=== PATIENT | female | born 1950 | race Caucasian/White ===

== ENCOUNTER → 2016-03-11 | Outpatient (REF) | payer MEDICARE, OTHER | LOC: M SFHCCLAY 09:16 | PROVIDERS: ATTEND Nurse Practitioner Family | DX: E78.5 Hyperlipidemia, unspecified (principal); E55.9 Vitamin D deficiency, unspecified ==

== ENCOUNTER → 2016-07-01 | Outpatient (CLI) | payer MEDICARE, OTHER ==
--- NOTE | 2016-07-01 11:52 | RADONC ---
RADIATION ONCOLOGY FOLLOWUP NOTE DATE: 07/01/2016 CHART NUMBER: [id number] DIAGNOSIS: Right breast cancer. STAGE: IA, [id number]. ECOG PERFORMANCE STATUS: 0. FOLLOWUP NOTE: Ms. Reina is a very pleasant 65-year-old white female with the diagnosis of a stage IA, [id number], moderately differentiated infiltrating ductal carcinoma of the right breast who is presenting to us today for routine followup visit 6 months post completion of external beam radiation therapy. The patient presents today reporting that she is doing quite well with no complaints at this time related to her radiation therapy or disease. She has no breast or bone pain. The patient's review of systems is noncontributory. She denies nausea, vomiting, fevers, chills, night sweats, diplopia, headaches, anxiety or depression, anorexia, weight loss, visual disturbances, chest pain, urinary or bowel difficulties, bone pain, or neurological problems. PHYSICAL EXAMINATION: The patient is a well-developed, well-nourished, female in no acute distress. HEENT exam is normocephalic, atraumatic. Extraocular movements are intact. There is no palpable cervical, supraclavicular, infraclavicular, axillary, or inguinal lymphadenopathy present. Lungs are clear to auscultation and percussion. Heart has a regular rate and rhythm. Abdomen is benign with no hepatosplenomegaly, masses, or tenderness. Breast examination reveals no masses or discharge bilaterally. Skeletal examination reveals no tenderness to pressure or percussion of the bony skeleton. Extremities reveal no clubbing, cyanosis, or edema. Neurologic exam is grossly intact, as is the remainder of the physical examination. ASSESSMENT: The patient is clinically AZEEM at this time and will be seen by us again in 1 year for further followup. She will also continue to be followed by her other physicians as well. cc: *Dr. Madhu Wisdom *Shen Almodovar MD *HEATH James
== END ==
LOC: M ONCR 10:07
PROVIDERS: ATTEND Radiology Radiation Oncology
DX: C50.211 Malignant neoplasm of upper-inner quadrant of right female breast (principal)

== ENCOUNTER → 2016-07-03 | Outpatient (REF) | payer MEDICARE, OTHER | LOC: M SFHCCLAY 07:41 | PROVIDERS: ATTEND Nurse Practitioner Family | DX: E78.5 Hyperlipidemia, unspecified (principal); E55.9 Vitamin D deficiency, unspecified ==

== ENCOUNTER → 2016-11-10 | Outpatient (REF) | payer MEDICARE, OTHER ==
[2016-11-10 12:23] LABS: MEAN CORPUSCULAR HEMOGLOBIN 30.5 pg (27.0-33.0); MEAN CORPUSCULAR HGB CONC 33.3 g/dl (32.0-36.5); MEAN CORPUSCULAR VOLUME 91.8 fl (80.0-96.0); RED CELL DISTRIBUTION WIDTH 12.6 % (11.5-14.5); WHITE BLOOD COUNT 5.4 K/mm3 (4.0-10.0)
[2016-11-10 12:57] LABS: ALBUMIN 3.8 GM/DL (3.2-5.2); ALBUMIN/GLOBULIN RATIO 1.19 (1.00-1.93); ALKALINE PHOSPHATASE 58 U/L (45-117); ALT/SGPT 39 U/L (12-78); ANION GAP 7 MEQ/L (8-16); AST/SGOT 22 U/L (15-37); BILIRUBIN,TOTAL 0.3 MG/DL (0.2-1.0); BLOOD UREA NITROGEN 8 MG/DL (7-18); CALCIUM LEVEL 8.9 MG/DL (8.8-10.2); CARBON DIOXIDE LEVEL 27 MEQ/L (21-32); CHLORIDE LEVEL 108 MEQ/L (98-107); CHOLESTEROL LEVEL 196 MG/DL (<200); CREATININE FOR GFR 0.63 MG/DL (0.55-1.02); GLOMERULAR FILTRATION RATE > 60.0 (>45); GLUCOSE, FASTING 88 MG/DL (80-110); POTASSIUM SERUM 4.5 MEQ/L (3.5-5.1); SODIUM LEVEL 142 MEQ/L (136-145); TRIGLYCERIDES LEVEL 158 MG/DL (<150)
== END ==
LOC: M SFHCCLAY 11-09 07:57
PROVIDERS: ATTEND Nurse Practitioner Family
DX: I10 Essential (primary) hypertension (principal); E78.5 Hyperlipidemia, unspecified; E55.9 Vitamin D deficiency, unspecified

== ENCOUNTER → 2017-05-11 | Outpatient (REF) | payer MEDICARE, OTHER ==
[2017-05-11 17:17] LABS: TOTAL 25(OH) VITAMIN D 42.5 NG/ML (30.0-100.0)
== END ==
LOC: M SFHCCLAY 09:58
DX: E55.9 Vitamin D deficiency, unspecified (principal)
CPT/HCPCS: 82306

== ENCOUNTER → 2017-07-07 | Outpatient (CLI) | payer MEDICARE, OTHER | LOC: M ONCR 10:58 | DX: C50.211 Malignant neoplasm of upper-inner quadrant of right female breast (principal) | CPT/HCPCS: G0463 ==

== ENCOUNTER → 2017-11-12 | Outpatient (REF) | payer MEDICARE, OTHER ==
[2017-11-12 11:51] LABS: HEMATOCRIT 39.2 % (36.0-47.0); HEMOGLOBIN 12.9 g/dl (12.0-15.5); MEAN CORPUSCULAR HEMOGLOBIN 29.6 pg (27.0-33.0); MEAN CORPUSCULAR HGB CONC 32.9 g/dl (32.0-36.5); MEAN CORPUSCULAR VOLUME 89.9 fl (80.0-96.0); PLATELET COUNT, AUTOMATED 269 10^3/uL (150-450); RED BLOOD COUNT 4.36 10^6/uL (4.00-5.40); RED CELL DISTRIBUTION WIDTH 12.6 % (11.5-14.5); WHITE BLOOD COUNT 6.8 10^3/uL (4.0-10.0)
[2017-11-12 12:32] LABS: ALBUMIN 3.6 GM/DL (3.2-5.2); ALBUMIN/GLOBULIN RATIO 0.97 (1.00-1.93); ALKALINE PHOSPHATASE 60 U/L (45-117); ALT/SGPT 24 U/L (12-78); ANION GAP 6 MEQ/L (8-16); AST/SGOT 15 U/L (7-37); BILIRUBIN,TOTAL 0.4 MG/DL (0.2-1.0); BLOOD UREA NITROGEN 10 MG/DL (7-18); CALCIUM LEVEL 8.7 MG/DL (8.8-10.2); CARBON DIOXIDE LEVEL 28 MEQ/L (21-32); CHLORIDE LEVEL 106 MEQ/L (98-107); CHOLESTEROL LEVEL 188 MG/DL (<200); CHOLESTEROL RISK RATIO 3.916 (<5); GLOMERULAR FILTRATION RATE > 60.0 (>45); GLUCOSE, FASTING 88 MG/DL (70-100); HDL CHOLESTEROL 48 MG/DL (>40); LDL CHOLESTEROL 93 MG/DL (<100); NON-HDL-C 140 MG/DL; POTASSIUM SERUM 4.4 MEQ/L (3.5-5.1); SODIUM LEVEL 140 MEQ/L (136-145); TOTAL 25(OH) VITAMIN D 56.1 NG/ML (30.0-100.0); TOTAL PROTEIN 7.3 GM/DL (6.4-8.2); TRIGLYCERIDES LEVEL 237 MG/DL (<150)
== END ==
LOC: M SFHCCLAY 08:46
DX: I10 Essential (primary) hypertension (principal); E78.5 Hyperlipidemia, unspecified; E55.9 Vitamin D deficiency, unspecified
CPT/HCPCS: 80053

== ENCOUNTER → 2017-12-08 | Outpatient (CLI) | payer MEDICARE, OTHER | LOC: M ONCR 11:01 | DX: C50.911 Malignant neoplasm of unspecified site of right female breast (principal) | CPT/HCPCS: G0463 ==

== ENCOUNTER → 2018-02-16 | Outpatient (REF) | payer MEDICARE, OTHER ==
[2018-04-09 15:39] LABS: HPV HYBRID CAPTURE II Negative (Negative)
== END ==
LOC: M SFHCCLAY 16:50
PROVIDERS: ATTEND Nurse Practitioner Family
DX: Z12.4 Encounter for screening for malignant neoplasm of cervix (principal); R87.610 Atypical squamous cells of undetermined significance on cytologic smear of cervix (ASC-US); N95.2 Postmenopausal atrophic vaginitis
CPT/HCPCS: 87624; G0123; G0463

== ENCOUNTER → 2018-05-16 | Outpatient (REF) | payer MEDICARE, OTHER ==
[2018-05-16 12:05] LABS: CHOLESTEROL RISK RATIO 3.783 (<5)
== END ==
LOC: M SFHCCLAY 08:12
PROVIDERS: ATTEND Nurse Practitioner Family
DX: E78.5 Hyperlipidemia, unspecified (principal)

== ENCOUNTER → 2018-07-13 | Outpatient (CLI) | payer MEDICARE, OTHER ==
--- NOTE | 2018-07-14 07:43 | RADONC ---
RADIATION ONCOLOGY FOLLOWUP NOTE DATE OF SERVICE: 07/13/2018 CHART NUMBER: [id number]. DIAGNOSIS: Right breast cancer. STAGE: I A, [id number]. ECOG PERFORMANCE STATUS: 0. FOLLOWUP NOTE: Mrs. Reina is a pleasant 67-year-old female with a diagnosis of stage I A right-sided breast cancer. She completed her external beam radiotherapy on 01/22/2016. She denies any side effects related to her disease or to her treatments. REVIEW OF SYSTEMS: She specifically denies any nausea, vomiting, coughing, sputum production or hemoptysis. Her energy level is such that she is able to maintain most day-to-day activities without any significant alteration in her lifestyle. Skin irritation is currently denied. The remainder of the review of systems is essentially noncontributory as she denies nausea, vomiting, fevers, chills, night sweats, diplopia, headaches, anxiety, depression, anorexia, weight loss, visual disturbances, chest pain, breast pain, urinary or bowel problems, bone pain or neurologic issues. EXAMINATION FINDINGS: Skin within the irradiated volume shows some minor telangiectatic changes but no significant thickening of the skin. There is no palpable peripheral lymphadenopathy in the cervical, supraclavicular, axillary or inguinal lymph node chains. Lungs are clear to auscultation and percussion. Heart: Regular without murmurs. Abdomen: Without evidence of hepatomegaly, masses or deep abdominal tenderness. Extremities: Without cyanosis, clubbing or edema. Neurologic: Examination grossly physiologic and nonfocal. Breasts: Bilaterally symmetric with no masses palpable. The most recent mammography was obtained on September 27, 2017 and was essentially negative with no evidence of malignancy in either breast. IMPRESSION: Clinically AZEEM at this time. PLAN: We would like to see her again in 6 months and she was encouraged to continue her routine followup visits with her referring physicians as per their directions and instructions. cc: FRANC James MD
== END ==
LOC: M ONCR 10:45
PROVIDERS: ATTEND Radiology Radiation Oncology
DX: Z85.3 Personal history of malignant neoplasm of breast (principal); Z92.3 Personal history of irradiation

== ENCOUNTER → 2018-08-22 | Outpatient (REF) | payer MEDICARE, OTHER ==
[2018-08-22 12:45] LABS: CHOLESTEROL RISK RATIO 3.754 (<5)
== END ==
LOC: M SFHCCLAY 07:43
PROVIDERS: ATTEND Nurse Practitioner Family
DX: E78.5 Hyperlipidemia, unspecified (principal)

== ENCOUNTER → 2018-12-28 | Outpatient (CLI) | payer MEDICARE, OTHER ==
--- NOTE | 2018-12-28 13:02 | RADONC ---
RADIATION ONCOLOGY FOLLOWUP NOTE DATE OF SERVICE: 12/28/2018 CHART NUMBER: [id number]. DIAGNOSIS: Right breast cancer. STAGE: IA, [id number]. ECOG PERFORMANCE STATUS: 0. FOLLOWUP NOTE: Mrs. Reina is a very pleasant 68-year-old white female with the diagnosis of a stage IA, [id number] moderately differentiated infiltrating ductal carcinoma of the right breast who is presenting to us today for routine followup visit 2 years postcompletion of external beam radiation therapy. The patient presents today reporting that she is doing quite well with no complaints at this time related to her radiation therapy or disease. She has no breast or bone pain. REVIEW OF SYSTEMS: The patient's review of systems is noncontributory. She denies nausea, vomiting, fevers, chills, night sweats, diplopia, headaches, anxiety or depression, anorexia, weight loss, visual disturbances, chest pain, urinary or bowel difficulties, bone pain, or neurological problems. PHYSICAL EXAMINATION: The patient is a well-developed, well-nourished female in no acute distress. HEENT examination is normocephalic, atraumatic. Extraocular movements are intact. There is no palpable cervical, supraclavicular, infraclavicular, axillary, or inguinal lymphadenopathy present. Lungs are clear to auscultation and percussion. Heart has a regular rate and rhythm. Abdomen is benign with no hepatosplenomegaly, masses, or tenderness. Breast examination reveals no masses or discharge bilaterally. Skeletal examination reveals no tenderness to pressure or percussion of the bony skeleton. Extremities reveal no clubbing, cyanosis, or edema. Neurologic examination is grossly intact, as is the remainder of the physical examination. ASSESSMENT: The patient is clinically AZEEM at this time. She is being followed and managed closely by her other physicians and, therefore, is being discharged from my followup except on a p.r.n. basis. cc: FRANC James MD
== END ==
LOC: M ONCR 10:03
PROVIDERS: ATTEND Radiology Radiation Oncology
DX: Z08 Encounter for follow-up examination after completed treatment for malignant neoplasm (principal); Z92.3 Personal history of irradiation; C50.211 Malignant neoplasm of upper-inner quadrant of right female breast

== ENCOUNTER → 2019-02-13 | Outpatient (REF) | payer MEDICARE, OTHER ==
[2019-02-13 11:31] LABS: HEMATOCRIT 41.5 % (36.0-47.0); HEMOGLOBIN 13.2 g/dl (12.0-15.5); MEAN CORPUSCULAR HEMOGLOBIN 29.6 pg (27.0-33.0); MEAN CORPUSCULAR HGB CONC 31.8 g/dl (32.0-36.5); PLATELET COUNT, AUTOMATED 297 10^3/uL (150-450); RED BLOOD COUNT 4.46 10^6/uL (4.00-5.40); WHITE BLOOD COUNT 7.2 10^3/uL (4.0-10.0)
[2019-02-13 11:55] LABS: ALBUMIN 3.6 GM/DL (3.2-5.2); ALT/SGPT 33 U/L (12-78); BILIRUBIN,TOTAL 0.4 MG/DL (0.2-1.0); BLOOD UREA NITROGEN 12 MG/DL (7-18); CALCIUM LEVEL 9.2 MG/DL (8.8-10.2); CARBON DIOXIDE LEVEL 28 MEQ/L (21-32); CHLORIDE LEVEL 108 MEQ/L (98-107); CHOLESTEROL LEVEL 218 MG/DL (<200); CHOLESTEROL RISK RATIO 3.573 (<5); CREATININE FOR GFR 0.71 MG/DL (0.55-1.30); GLOMERULAR FILTRATION RATE > 60.0 (>45); GLUCOSE, FASTING 97 MG/DL (70-100); HDL CHOLESTEROL 61 MG/DL (>40); LDL CHOLESTEROL 138 MG/DL (<100); NON-HDL-C 157 MG/DL; POTASSIUM SERUM 4.4 MEQ/L (3.5-5.1); SODIUM LEVEL 143 MEQ/L (136-145); TOTAL PROTEIN 7.1 GM/DL (6.4-8.2); TRIGLYCERIDES LEVEL 93 MG/DL (<150)
[2019-02-13 12:01] LABS: TOTAL 25(OH) VITAMIN D 65.4 NG/ML (30.0-100.0)
== END ==
LOC: M SFHCCLAY 09:22
PROVIDERS: ATTEND Nurse Practitioner Family
DX: I10 Essential (primary) hypertension (principal); E78.5 Hyperlipidemia, unspecified; E55.9 Vitamin D deficiency, unspecified

== ENCOUNTER → 2019-06-14 | Outpatient (REF) | payer MEDICARE, OTHER ==
[2019-06-14 11:52] LABS: ALBUMIN 3.6 GM/DL (3.2-5.2); ALT/SGPT 27 U/L (12-78); BILIRUBIN,DIRECT < 0.1 MG/DL (0.0-0.2); BILIRUBIN,TOTAL 0.2 MG/DL (0.2-1.0); CHOLESTEROL LEVEL 157 MG/DL (<200); CHOLESTEROL RISK RATIO 2.492 (<5); HDL CHOLESTEROL 63 MG/DL (>40); LDL CHOLESTEROL 66 MG/DL (<100); NON-HDL-C 94 MG/DL; TRIGLYCERIDES LEVEL 138 MG/DL (<150)
== END ==
LOC: M SFHCCLAY 08:28
PROVIDERS: ATTEND Nurse Practitioner Family
DX: E78.5 Hyperlipidemia, unspecified (principal)

== ENCOUNTER → 2019-12-07 | Outpatient (REF) | payer MEDICARE, OTHER ==
[2019-12-07 11:25] LABS: HEMOGLOBIN 12.4 g/dl (12.0-15.5); MEAN CORPUSCULAR HEMOGLOBIN 28.4 pg (27.0-33.0); MEAN CORPUSCULAR VOLUME 91.7 fl (80.0-96.0); PLATELET COUNT, AUTOMATED 289 10^3/uL (150-450); RED BLOOD COUNT 4.36 10^6/uL (4.00-5.40); WHITE BLOOD COUNT 6.6 10^3/uL (4.0-10.0)
[2019-12-07 11:54] LABS: ALBUMIN 3.4 GM/DL (3.2-5.2); ALT/SGPT 21 U/L (12-78); BILIRUBIN,TOTAL 0.3 MG/DL (0.2-1.0); BLOOD UREA NITROGEN 14 MG/DL (7-18); CALCIUM LEVEL 8.7 MG/DL (8.8-10.2); CARBON DIOXIDE LEVEL 27 MEQ/L (21-32); CHLORIDE LEVEL 108 MEQ/L (98-107); CHOLESTEROL LEVEL 160 MG/DL (<200); CHOLESTEROL RISK RATIO 2.711 (<5); CREATININE FOR GFR 0.67 MG/DL (0.55-1.30); GLOMERULAR FILTRATION RATE > 60.0 (>39); GLUCOSE, FASTING 95 MG/DL (70-100); HDL CHOLESTEROL 59 MG/DL (>40); LDL CHOLESTEROL 76 MG/DL (<100); NON-HDL-C 101 MG/DL; POTASSIUM SERUM 4.5 MEQ/L (3.5-5.1); SODIUM LEVEL 140 MEQ/L (136-145); TOTAL PROTEIN 6.9 GM/DL (6.4-8.2); TRIGLYCERIDES LEVEL 124 MG/DL (<150)
[2019-12-07 13:46] LABS: TOTAL 25(OH) VITAMIN D 35.9 NG/ML (30.0-100.0)
== END ==
LOC: M SFHCCLAY 08:06
PROVIDERS: ATTEND Nurse Practitioner Family
DX: I10 Essential (primary) hypertension (principal); E78.5 Hyperlipidemia, unspecified; E55.9 Vitamin D deficiency, unspecified

== ENCOUNTER 2020-07-10 11:37 | Observation (INO) | payer MEDICARE, OTHER ==
[~2020-07-10] VITALS: Ht 160 cm; Wt 78.5 kg
[2020-07-10] MEDS ORDERED: VITAD400CA PO (11:49)
[2020-07-10] MEDS ORDERED: TAMO20TA8 PO (11:49)
[2020-07-10] MEDS ORDERED: ATOR1TAB21 PO (11:49)
[2020-07-10] MEDS ORDERED: LISI30TA4 PO (11:49)
[2020-07-10] MEDS ORDERED: methylPREDNISolone 125MG 2ML VIAL IV ONE (12:40)
[2020-07-10] MEDS ORDERED: FAMOTIDINE INJ 20MG/2ML VIAL (S0028 PER 1) IVP ONE (12:40)
--- NOTE | 2020-07-10 12:48 | REP ---
INDICATION: DYSPNEA/COUGH. COMPARISON: None. TECHNIQUE: Single portable AP view of the chest was performed. FINDINGS: There is no acute infiltrate or pulmonary edema. Lungs are clear. The heart is not significantly enlarged. The mediastinal silhouette is unremarkable. The visualized osseous structures are intact. IMPRESSION: No acute pulmonary disease. <Electronically signed by Dioni Shannon > 07/10/20 [id number]
[2020-07-10 13:22] LABS: BASO % 0.2 % (0.0-1.0); EOS # 0.1 10^3/uL (0.0-0.5); EOS % 0.7 % (0.0-3.0); HEMATOCRIT 41.5 % (36.0-47.0); HEMOGLOBIN 13.6 g/dl (12.0-15.5); LYMPH # 1.7 10^3/uL (1.5-5.0); LYMPH % 20.9 % (24.0-44.0); MEAN CORPUSCULAR HEMOGLOBIN 29.2 pg (27.0-33.0); MEAN CORPUSCULAR HGB CONC 32.8 g/dl (32.0-36.5); MEAN CORPUSCULAR VOLUME 89.2 fl (80.0-96.0); MONO # 0.6 10^3/uL (0.0-0.8); MONO % 7.4 % (2.0-8.0); NEUTROPHILS # 5.7 10^3/uL (1.5-8.5); NEUTROPHILS % 70.4 % (36.0-66.0); PLATELET COUNT, AUTOMATED 254 10^3/uL (150-450); RED BLOOD COUNT 4.65 10^6/uL (4.00-5.40); WHITE BLOOD COUNT 8.1 10^3/uL (4.0-10.0)
[2020-07-10 13:49] LABS: ALBUMIN 3.3 GM/DL (3.2-5.2); ALT/SGPT 26 U/L (12-78); BILIRUBIN,DIRECT 0.2 MG/DL (0.0-0.2); BILIRUBIN,TOTAL 0.6 MG/DL (0.2-1.0); BLOOD UREA NITROGEN 17 MG/DL (7-18); C REACTIVE PROTEIN QUANTITATIV 1.84 MG/DL (0.00-0.30); CALCIUM LEVEL 8.6 MG/DL (8.8-10.2); CARBON DIOXIDE LEVEL 25 MEQ/L (21-32); CHLORIDE LEVEL 105 MEQ/L (98-107); COMPLEMENT C4 31 MG/DL (10-40); CREATININE FOR GFR 0.76 MG/DL (0.55-1.30); GLOMERULAR FILTRATION RATE > 60.0 (>39); GLUCOSE, FASTING 111 MG/DL (70-100); POTASSIUM SERUM 3.8 MEQ/L (3.5-5.1); SODIUM LEVEL 137 MEQ/L (136-145); TOTAL PROTEIN 6.3 GM/DL (6.4-8.2)
[2020-07-10 13:50] LABS: ERYTHROCYTE SEDIMENTATION RATE 6 mm/hr (0-30)
[2020-07-10] MEDS ORDERED: diphenhydrAMINE 50MG/ML VIAL (J1200) IV STA (14:23)
[2020-07-10] MEDS ORDERED: ISOVUE-370 76% 100ML VIAL As Ordered ONE (15:49)
[2020-07-10] MEDS ORDERED: LEVALBUTEROL 1.25 MG/0.5 ML CONCENTRATE NEB INH PRN (15:55)
[2020-07-10] MEDS: LEVALBUTEROL 1.25 MG/0.5 ML CONCENTRATE NEB INH SCH ×2 (16:00→19:31)
[2020-07-10] MEDS ORDERED: MONTELUKAST 10 MG TAB PO ONE (16:20)
--- NOTE | 2020-07-10 16:37 | REPVR ---
PROCEDURE INFORMATION: Exam: CT Neck With Contrast Exam date and time: 07/10/2020 4:19 PM Age: 69 years old Clinical indication: Neck pain; Additional info: Angioedema R/O laryngeal airway obstruction TECHNIQUE: Imaging protocol: Computed tomography images of the neck with contrast. Radiation optimization: All CT scans at this facility use at least one of these dose optimization techniques: automated exposure control; mA and/or kV adjustment per patient size (includes targeted exams where dose is matched to clinical indication); or iterative reconstruction. Contrast material: ISO 370; Contrast volume: 75 ml; Contrast route: INTRAVENOUS (IV); COMPARISON: Thyroid, ST head+neck US 12/24/2015 12:45 PM FINDINGS: Nasopharynx: Unremarkable. Oropharynx: Unremarkable. No significant tonsillar enlargement. Hypopharynx: Unremarkable. Larynx: There is moderate thickening of the aryepiglottic folds. Mild thickening of the epiglottis is also noted. The findings could be related to the clinical history of angioedema or epiglottitis. Clinical correlation is recommended. There is no significant narrowing of the airway. Retropharyngeal space: Unremarkable. Submandibular/Parotid glands: Normal. Glands are normal in size. Thyroid: There is a 2.8 cm heterogeneous nodule within the inferior left thyroid. A follow-up thyroid ultrasound is recommended. Lymph nodes: Unremarkable. No lymphadenopathy. Trachea: Visualized trachea is unremarkable. Lungs: There is a calcified granuloma within the right upper lobe. Bones/joints: Moderate/severe degenerative changes of the cervical spine are present. Vasculature: Atherosclerotic calcifications are present at the left carotid bifurcation and within the proximal left internal carotid artery. There is less than 50% stenosis. Soft tissues: Unremarkable. No significant soft tissue swelling. IMPRESSION: 1. Moderate thickening of the aryepiglottic folds. Mild thickening of the epiglottis is also noted. The findings could be related to the clinical history of angioedema or epiglottitis. Clinical correlation is recommended. There is no significant narrowing of the airway. 2. Nonspecific 2.8 cm left thyroid nodule. A follow-up thyroid ultrasound is recommended. COMMENTS: Consistent with the [employer]'s Incidental Findings Committee white paper (J Am Dacia Radiol 2015): In patients aged 35 years and older with an incidental thyroid nodule equal to or greater than 1.[address], MRI or extrathyroidal US, further evaluation with dedicated thyroid US is recommended for patients with normal life expectancy and without comorbidities. For smaller nodules without suspicious features, no further evaluation or follow up is recommended. Electronically signed by: Michael Michel On 07/10/2020 16:37:41 PM
[2020-07-10] MEDS ORDERED: D31000TA2 PO (16:40)
[2020-07-10] MEDS ORDERED: LABETALOL 100MG/20ML VIAL IV STA (16:42)
[2020-07-10] MEDS ORDERED: DEXTROSE 50% 50 ML SYRINGE IV PRN (16:55)
[2020-07-10] MEDS ORDERED: GLUCAGON INJ 1MG VIAL SC PRN (16:55)
[2020-07-10] MEDS ORDERED: GLUCOSE 4GM CHEW TABLET PO PRN (16:55)
--- NOTE | 2020-07-10 17:36 | HPEPDOC ---
[facility] Medical History & Physical Date of Admission July 10, 2020 Date of Service: July 10, 2020 History and Physical ADDENDUM TO H&P: Assessment and plan: 69-year-old female with history of dyslipidemia, hypertension on lisinopril for several years. Seasonal allergies. Kidney stone, left thyroid cyst. Negative fine-needle aspiration biopsy in 2016, on tamoxifen, status post right-sided lumpectomy, bilateral cataract surgery, wisdom teeth extraction in 1979 1955 was in her usual state of health until yesterday when she developed swollen lips and tongue and generalized some maculopapular rash, bilateral upper extremities, Neck and face without any recent exposure to new medications, detergents, environmental allergies in the home. She denies any shortness of breath but admits to having a hoarse voice, without expressive aphasia, or dysphasia. She had taken 25 mg of Benadryl every 6 hours 3 at home. In the emergency room, patient had no stridor, swelling in the lips and tongue improved with no worse as of the voice. She was given 1 dose of IV Solu-Medrol 125 mg IV famotidine and intravenous Benadryl with significant improvement. She had no wheezing or respiratory distress, but continued to have a rash on the bilateral upper extremities and right side of her neck. CT neck with contrast showed moderate swelling of the aryepiglottic folds. Ear, nose and throat surgeon, Dr. Vaughan , was consulted. Patient was kept nothing by mouth. Angioedema secondary to lisinopril -without airway compromise, both on clinical exam without stridor or respiratory distress and CT of the neck: No airway compromise, but moderate swelling of the aryepiglottic folds -Patient has been kept nothing by mouth until she is evaluated by ear, nose and throat surgeon, Dr. VAUGHAN -IV Solu-Medrol 125 mg every 6 hourly, IV famotidine, IV Benadryl, Xopenex nebulizer, supplemental oxygen if needed. If saturations decreased below 88% on room air. Aspiration precautions -Speech therapy evaluation. May resume recommended diet. Once ENT clears to patient for oral intake -Allergy referral as outpatient -C1 esterase deficiency workup and complement levels. Uncontrolled hypertension -Patient has not taken her lisinopril for 2 days due to angioedema. -Since She is kept nothing by mouth until evaluated by ear, nose and throat surgeon, she will be given IV labetalol 20 mg. Telemetry monitoring to monitor for bradycardia. -If persistent uncontrolled hypertension and still nothing by mouth status, nitroglycerin topically every 6 hourly until blood pressure is controlled. -Once the patient resumes oral intake. He changed to oral Norvasc or oral labetalol or atenolol Dyslipidemia -Hold medications until patient resumes oral intake History of breast lumpectomy on the right -on chronic tamoxifen Thyroid nodule -Previously evaluated with fine-needle aspiration biopsy which was negative. 2016 -Recheck thyroid ultrasound -ENT referral as outpatient Diet nothing by mouth. IV fluids. Hypoglycemic protocol CODE STATUS full code DVT prophylaxis: Compression stockings Disposition: Discharge in the morning if no other acute issues overnight and angioedema resolved Vital Signs Vital Signs Date Time Temp Pulse Resp B/P (MAP) Pulse Ox O2 Delivery O2 Flow Rate FiO2 07/10/20 13:52 103 97 07/10/20 13:45 157/95 (115) 07/10/20 11:37 98.7 18 Room Air Laboratory Data Labs 24H Laboratory Tests 2 07/10/20 12:48: Immature Granulocyte % (Auto) 0.4, Neutrophils (%) (Auto) 70.4H, Lymphocytes (%) (Auto) 20.9L, Monocytes (%) (Auto) 7.4, Eosinophils (%) (Auto) 0.7, Basophils (%) (Auto) 0.2, Neutrophils # (Auto) 5.7, Lymphocytes # (Auto) 1.7, Monocytes # (Auto) 0.6, Eosinophils # (Auto) 0.1, Basophils # (Auto) 0.0, Nucleated Red Blood Cells % (auto) 0.0, Erythrocyte Sedimentation Rate 6, Anion Gap 7L, G lomerular Filtration Rate > 60.0, Calcium Level 8.6L, Total Bilirubin 0.6, Direct Bilirubin 0.2, Aspartate Amino Transf (AST/SGOT) 16, Alanine Aminotransferase (ALT/SGPT) 26, Alkaline Phosphatase 55, C-Reactive Protein, Quantitative 1.84H, Total Protein 6.3L, Albumin 3.3, Albumin/Globulin Ratio 1.1L , Complement C4 31 CBC/BMP Laboratory Tests 07/10/20 12:48 Microbiology Microbiology 07/10/20 Respiratory Virus Panel (PCR) ([facility]) - Final, Complete Home Medications Scheduled Atorvastatin Calcium (Atorvastatin Calcium) 20 Mg Tablet, 20 MG PO QHS Cholecalciferol (Vitamin D3) (Vitamin D3) 1,000 Unit Tablet, 1,000 UNITS PO QHS Lisinopril (Lisinopril) 30 Mg Tablet, 30 MG PO QHS Tamoxifen Citrate (Tamoxifen Citrate) 20 Mg Tablet, 20 MG PO QHS Allergies Coded Allergies: Sulfa (Sulfonamide Antibiotics) (Unverified Allergy, Severe, Anaphylaxis, lip swelling, 07/10/20) lisinopril (Verified Adverse Reaction, Severe, angioedema, 07/10/20) A-FIB/CHADSVASC A-FIB History Current/History of A-Fib/PAF?: No Age/Risk Factor Scoring CHADSVASC: CHADSVASC Response (Comments) Value Age Risk Factor Age 65-74 years old 1 Gender Risk Factor Female 1 Hx of CHF No 0 Hx of HTN Yes 1 Hx of Stroke/TIA/or VTE No 0 Hx of Diabetes No 0 Hx of Vascular Disease No 0 Total 3 Treatment Treatment ordered: NONE GRAY MORGAN MD July 10, 2020 17:14
[2020-07-10] MEDS ORDERED: methylPREDNISolone 125MG 2ML VIAL IV SCH (18:00)
[2020-07-10] MEDS: NITROGLYCERIN 2% OINT 1 GM *U/D* PKT TOP SCH (18:00)
[2020-07-10] MEDS: D5W/0.45% SODIUM CHLORIDE 1,000 ML IV SCH (18:07)
[2020-07-10 18:11] VITALS: BP 166/81
[2020-07-10 18:36] VITALS: BP 127/66
[2020-07-10] MEDS: methylPREDNISolone 125MG 2ML VIAL IV SCH (18:36)
[2020-07-10] MEDS: FAMOTIDINE IV BAG 20 MG in IV 1 EA IV SCH (18:36)
[2020-07-10 20:00] VITALS: BP 136/83
[2020-07-10] MEDS: diphenhydrAMINE 50MG/ML VIAL (J1200) IV SCH (21:06)
[2020-07-10] MEDS: TRIAMCINOLONE ACET 0.1% OINTMENT 80 GM TOP SCH (21:07)
--- NOTE | 2020-07-10 23:48 | REPVR ---
PROCEDURE INFORMATION: Exam: US Soft Tissue Head and Neck, Thyroid Exam date and time: 07/10/2020 10:54 PM Age: 69 years old Clinical indication: Abnormal findings; Abnormal radiologic study of neck; Additional info: Thyroid nodule TECHNIQUE: Imaging protocol: Real-time ultrasound scan of the neck with image documentation. Exam focused on the thyroid. COMPARISON: CT Neck with contrast 07/10/2020 4:14 PM FINDINGS: Right thyroid lobe: Right thyroid lobe measures 4.4 x 1.4 x 1.3 cm. There are a few tiny cysts involving the right thyroid lobe. No solid mass involving the right thyroid. Left thyroid lobe: Left thyroid lobe measures 4.6 x 2.0 x 2.1 cm. Heterogeneous hypoechoic solid mass involving the left thyroid measuring 2.9 x 1.9 x 1.9 cm. Isthmus: No nodules. IMPRESSION: Solid hypoechoic mass involving the inferior left thyroid lobe measuring up to 2.9 cm. Biopsy may be considered if not already performed. Electronically signed by: Omkar Kennedy On 07/10/2020 23:48:15 PM
[2020-07-11] VITALS: BP 121/60
[2020-07-11] MEDS: NITROGLYCERIN 2% OINT 1 GM *U/D* PKT TOP SCH
[2020-07-11] MEDS: methylPREDNISolone 125MG 2ML VIAL IV SCH ×2 (00:25→05:35)
[2020-07-11 04:00] VITALS: BP 121/60
[2020-07-11] MEDS: diphenhydrAMINE 50MG/ML VIAL (J1200) IV SCH (04:01)
[2020-07-11] MEDS: D5W/0.45% SODIUM CHLORIDE 1,000 ML IV SCH (04:01)
[2020-07-11 04:31] LABS: HEMATOCRIT 39.8 % (36.0-47.0); HEMOGLOBIN 13.3 g/dl (12.0-15.5); MEAN CORPUSCULAR HEMOGLOBIN 29.5 pg (27.0-33.0); MEAN CORPUSCULAR HGB CONC 33.4 g/dl (32.0-36.5); MEAN CORPUSCULAR VOLUME 88.2 fl (80.0-96.0); PLATELET COUNT, AUTOMATED 236 10^3/uL (150-450); RED BLOOD COUNT 4.51 10^6/uL (4.00-5.40); WHITE BLOOD COUNT 7.6 10^3/uL (4.0-10.0)
[2020-07-11 04:52] LABS: BLOOD UREA NITROGEN 9 MG/DL (7-18); CALCIUM LEVEL 8.4 MG/DL (8.8-10.2); CARBON DIOXIDE LEVEL 25 MEQ/L (21-32); CHLORIDE LEVEL 109 MEQ/L (98-107); CREATININE FOR GFR 0.69 MG/DL (0.55-1.30); GLOMERULAR FILTRATION RATE > 60.0 (>39); GLUCOSE, FASTING 200 MG/DL (70-100); POTASSIUM SERUM 3.8 MEQ/L (3.5-5.1); SODIUM LEVEL 138 MEQ/L (136-145)
[2020-07-11] MEDS ORDERED: diphenhydrAMINE 25MG CAP PO PRN (05:10)
[2020-07-11] MEDS ORDERED: PRED10TA2 PO (05:15)
[2020-07-11] MEDS ORDERED: CETI10TA PO (05:15)
[2020-07-11] MEDS ORDERED: ATEN25TA PO (05:15)
[2020-07-11] MEDS ORDERED: MONT10TA10 PO (05:15)
[2020-07-11] MEDS ORDERED: DIPH25CA32 PO (05:15)
[2020-07-11] MEDS ORDERED: TRIA1OI80 TOP (05:15)
[2020-07-11] MEDS: FAMOTIDINE IV BAG 20 MG in IV 1 EA IV SCH (05:35)
[2020-07-11 05:39] LABS: HEMOGLOBIN A1c 5.8 %
[2020-07-11 07:15] VITALS: BP 142/73
[2020-07-11 07:23] VITALS: BP 142/73
[2020-07-11] MEDS: TRIAMCINOLONE ACET 0.1% OINTMENT 80 GM TOP SCH (07:23)
--- NOTE | 2020-07-11 08:57 | HPE ---
HISTORY AND PHYSICAL DATE OF ADMISSION: 07/10/2020 CHIEF COMPLAINT: Swollen lips, tongue and hoarse voice. HISTORY OF PRESENT ILLNESS: A 69-year-old female with past medical history significant for hypertension on lisinopril, presented to the emergency room with two day history of swollen lips, tongue, hoarse voice that started yesterday. The patient has not had any recent medication changes and has been on lisinopril for years, no diet changes, no exposure to environmental or seasonal allergies. The patient took Benadryl 25 mg three times last night and two this morning. The rash developed generalized, bilateral upper extremities, chest, neck, back and face with some improvement this morning, However, the patient developed worsening swollen lips and tongue today, prompting her to come to the ER. She denies any shortness of breath, no dysphagia, odynophagia or aspiration risk. She said at 11 the rash went away but her eyes became swollen, prompting her to come to the ER for evaluation. The patient has no prior history of C1 esterase deficiency. Complement levels and C1 esterase have been obtained in the ER. CT of neck with contrast, 07/10/2020 shows moderate thickening of the aryepiglottic folds, mild thickening of the epiglottis, could be related to angioedema or epiglottitis. Nodule in the left thyroid gland. Seen trachea is otherwise unremarkable. Moderate degenerative disc changes of the cervical spine are present. Hospitalist was asked to admit the patient for angioedema, rule out airway obstruction. O2 saturation 97% on room air. The patient is able to speak in full sentences but with slight hoarseness of the voice. PAST MEDICAL HISTORY: 1. Kidney stones. 2. Seasonal allergies. 3. Fibroid cyst with negative FNA, 2015. 4. Colonoscopy by Dr. Springer. ALLERGIES: SULFA, NAUSEA AND VOMITING, TONGUE SWELLING. No allergy to lisinopril causing angioedema. PAST SURGICAL HISTORY: 1. T&A, 1955. 2. [place] teeth extraction, 1970. 3. Right-sided lumpectomy, 2015. 4. Bilateral cataract surgery, December,. HOME MEDICATIONS: 1. Lisinopril 30 q.h.s. 2. Tamoxifen 20 q.h.s. 3. Vitamin D 1000 units q.h.s. 4. Atorvastatin 20 mg q.h.s. FAMILY HISTORY: Father , age 76 with hypertension, Mother , age 67, mental disorder following organ brain damage. SOCIAL HISTORY: The patient was a former smoker, quit in 1989. 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 REVIEW OF SYSTEMS: Per HPI, 12-point system otherwise negative. PHYSICAL EXAMINATION: VITAL SIGNS: Temperature 98.7, pulse 103, respiratory rate 18, blood pressure 157/95, 97% on room air. GENERAL: The patient speaks in full sentences, no tracheal deviation, swelling of the lips improved, no stridor on exam. Maculopapular rash on the neck, back, chest, bilateral upper extremities, raised, erythematous, patchy, nontender but pleuritic. LUNGS: Clear to auscultation, no wheezing, rales or rhonchi. HEART: S1, S2, sinus rhythm. ABDOMEN: Soft, nontender, nondistended. Positive bowel sounds. EXTREMITIES: No cyanosis, clubbing or pitting edema. LABORATORY DATA: White count 8.1, hemoglobin 13, hematocrit 41, platelet count 254. Sodium 137, potassium 3.9, chloride 105, bicarb 25, BUN 17, creatinine 0.76, glucose 111. Calcium 8.6, T bili 0.6, direct bili 0.2, AST 16, ALT 26, alk phos 55. Total protein 6.3, albumin 3.3. Tryptase pending. Functional C1 esterase inhibitor pending, nonfunctional C1 esterase inhibitor and complement C4 pending. CT, neck with contrast: Moderate thickening of the aryepiglottic folds, mild thickening of hematocrit epiglottis, angioedema versus epiglottitis. There is no significant narrowing of the airway. Nonspecific 2.8 cm left thyroid nodule. Followup thyroid ultrasound is recommended. ASSESSMENT AND PLAN: This is a 69-year-old female with history of hypertension, dyslipidemia, right-sided lumpectomy on chronic tamoxifen, presented with angioedema without airway compromise on CT, complained of some hoarse voice. IMPRESSION: 1. Angioedema secondary to lisinopril. Lisinopril has been discontinued. ENT consult for direct laryngoscopy, IV Solu-Medrol q.6 hourly, IV Benadryl, Montelukast nebulizer treatment, supplemental oxygen if needed, keep NPO for now. 2. Hypertension, uncontrolled. The patient has not taken lisinopril for two days. We will given IV labetalol for now. Nitroglycerin paste for quicker control until p.o. status is restarted. 3. Dyslipidemia. Hold off on p.o. meds for now.
--- NOTE | 2020-07-11 08:59 | DSES ---
DISCHARGE SUMMARY DATE OF ADMISSION: 07/10/2020 DATE OF DISCHARGE: 07/11/2020 CONSULTANTS DURING THIS ADMISSION: Dr. Vaughan ENT surgeon. PROCEDURES DURING THIS ADMISSION: Laryngoscopy. PRIMARY DISCHARGE DIAGNOSES: 1. Angioedema secondary to lisinopril. 2. Uncontrolled hypertension. 3. Dyslipidemia. 4. History of breast lumpectomy on the right. 5. Thyroid nodule. DISCHARGE MEDICATIONS: 1. Prednisone taper. 2. Montelukast 10 mg daily. 3. Cetirizine 10 mg daily. 4. Diphenhydramine 25 mg q. four as needed. 5. Triamcinolone ointment topically b.i.d. 6. Atenolol 25 mg b.i.d.; hold for systolic pressure less than 130 or heart rate less than 60. 7. Atorvastatin 20 mg q. h.s. 8. Vitamin D3 at 1000 units p.o. q. h.s. 9. Tamoxifen 20 mg q. h.s. DISCHARGE INSTRUCTIONS: The patient is to complete prednisone taper and follow-up with primary care physician within five days of hospital discharge. Allergy/immunology Dr. Payne, a new referral for angioedema; rule out C1 esterase deficiency. Primary care physician to make the referral within one to two weeks of hospital discharge. For the 2.8 cm thyroid nodule on the left, please have follow-up ultrasound. HOSPITAL COURSE: This is a 69-year-old female with a history of seasonal allergies, hypertension, thyroid nodule status post fine needle aspiration with biopsy in 2016, which was negative, right breast lumpectomy on chronic tamoxifen, and wisdom teeth extraction who presented with two day history of maculopapular rash bilateral upper extremities, neck and face, swollen lips and tongue, and hoarse voice. The patient has had no exposure to any new medications, detergents, or environmental allergies in the home. She denied any shortness of breath or wheezing. She was found to have angioedema in the emergency room and was given IV Solu-Medrol intravenous 125 mg, famotidine, and intravenous Benadryl. CT neck showed moderate swelling of the aryepiglottic folds. ENT surgeon, Dr. Vaughan, was consulted and the patient underwent laryngoscopy and was kept n.p.o. After laryngoscopy was done, there was no concern for airway obstruction. She was started on a clear liquid diet, which she tolerated. She had no dysphasia and no worsening hoarseness of the voice. She was kept on Solu-Medrol 25 mg IV q. six hourly and nebulizer Xopenex. Due to tachycardia, Albuterol could not be used. She was given famotidine, IV Benadryl, and supplemental oxygen for saturations below 88%, and aspiration precautions. Speech therapy evaluated the patient with no signs of aspiration. C1 esterase deficiency workup and complement levels were sent. The patient had symptomatic improvement with topical steroids. The rash had mostly dissipated. The patient's lisinopril was discontinued, which was thought to be the cause for the patient's angioedema. Her blood pressure was treated with nitroglycerin topically q. six hourly while she was kept n.p.o. and IV labetalol 20 mg in the ICU under telemetry monitoring. The patient was changed to Atenolol 25 mg b.i.d. with instructions to hold for blood pressure at home if the blood pressure is less than 130 mmHg or heart rate less than 60. The patient had no other acute issues overnight. DISCHARGE PHYSICAL EXAMINATION: VITAL SIGNS: Temperature 97.2, pulse 88, respiratory rate 18, blood pressure 121/60, 93% on room air. GENERAL: Awake, alert, and oriented x3. Answering questions appropriately. HEENT: Tongue is not swollen. Face is symmetric. Tongue is midline. No stridor on exam. She has some facial erythema along the right face, but no induration or cellulitic changes. No cervical lymphadenopathy, thyromegaly, or jugular venous distention. She continues to have a maculopapular rash along the dorsal right upper arm. Rash along the neck on the right side and upper arms have all resolved. LUNGS: Clear to auscultation. No wheezing, rales, or rhonchi. HEART: S1, S2. Sinus rhythm. ABDOMEN: Soft, nontender, and nondistended. EXTREMITIES: No cyanosis, clubbing, or pitting edema. DISHARGE LABORATORY DATA: White count 7.6, hemoglobin 13, hematocrit 39, platelet count 236,000. Sodium 138, potassium 3.8, chloride 109, bicarb 25, BUN 9, creatinine 0.69, glucose of 200. Complement C4 of 31. C1 functional, nonfunctional, and esterase inhibitor pending. IMAGING STUDIES: CT of the neck: Moderate thickening of the aryepiglottic folds, mild thickening of the epiglottis consistent with clinical history of angioedema or epiglottitis. Nonspecific 2.8 cm left thyroid nodule. Follow-up ultrasound is recommended. Ultrasound of the thyroid: Solid hypoechoic mass involving inferior left thyroid lobe measuring 2.9 cm. Biopsy may be considered if not already performed. Time spent on discharge: 30 minutes.
[2020-07-11] MEDS ORDERED: MONTELUKAST 10 MG TAB PO SCH (09:00)
[2020-07-11] MEDS ORDERED: atenoloL 25 MG TAB PO SCH (09:00)
[2020-07-11] MEDS ORDERED: CETIRIZINE (ZyrTEC) 10 MG TAB PO SCH (09:00)
--- NOTE | 2020-07-11 10:00 | RO ---
PROCEDURE NOTE DATE OF PROCEDURE: 07/11/2020 INDICATIONS FOR PROCEDURE: The patient presents with a history of swelling in the mouth. The patient had taken lisinopril and then yesterday, developed some swelling of her lips and tingling of her lips. She did take some Benadryl and it did settle down. Today, this swelling became worse and she had swelling of her tongue. She has had no difficulty with breathing. She is not taking the lisinopril any longer. The patient is in no distress for breathing. Examination shows the patient alert, oriented, and in no distress. Her speech is normal. Her tongue does not appear to be swollen. I cannot see the oropharynx. She has upper and lower dentures. DESCRIPTION OF PROCEDURE: I placed the flexibile fiberoptic nasopharyngoscope through the nose and down into the throat. This shows that she has edema in the vallecula and the left arytenoid, but the right arytenoid is fine. The epiglottis looks fine. The vocal cords are fine. The patient presents with a history of angioedema. The patient is stable. We will observe the patient overnight. She can have a liquid diet. If she is fine tomorrow, she will be discharged.
[2020-07-11] MEDS ORDERED: diphenhydrAMINE 50MG/ML VIAL (J1200) IV PRN (21:00)
[2020-07-13 07:16] LABS: C1 ESTER INHIB. NON FUNCTIONAL 22 mg/dL (21-39); COAGULATION FACTOR XII ACTIVIT 103 % (50-150); TRYPTASE 14.4 ug/L (2.2-13.2)
== END 2020-07-11 09:40 | disposition home or self-care (01) ==
LOC: M ED 11:37 → M ED INP 15:40 → ENRESERV 17:04 → M ICU 18:02
PROVIDERS: ADMIT General Practice; ATTEND General Practice
DX: T78.3XXA Angioneurotic edema, initial encounter (principal); T46.4X5A Adverse effect of angiotensin-converting-enzyme inhibitors, initial encounter; R00.0 Tachycardia, unspecified; I10 Essential (primary) hypertension; E78.5 Hyperlipidemia, unspecified; E04.1 Nontoxic single thyroid nodule; R49.0 Dysphonia; J30.1 Allergic rhinitis due to pollen; Z87.442 Personal history of urinary calculi; Z88.8 Allergy status to other drugs, medicaments and biological substances; Z88.2 Allergy status to sulfonamides; Z79.899 Other long term (current) drug therapy; Z87.891 Personal history of nicotine dependence
CPT/HCPCS: 31575; 36415; 70491; 71045; 76536; 80048; 80076; 83036; 83519; 85025; 85027; 85280; 85652; 86140; 86160; 86850; 86900; 86901; 87798; 92610; 93041; 94760; 96374; 96375; 96376; 99285; G0378; J1200; J2930; Q9967

== ENCOUNTER → 2020-12-09 | Outpatient (REF) | payer MEDICARE, OTHER ==
[~2020-12-09] MED LIST: ATEN25TA PO; ATOR1TAB21 PO; CETI10TA PO; D31000TA2 PO; DIPH25CA32 PO; LISI30TA4 PO; MONT10TA10 PO; PRED10TA2 PO; TAMO20TA8 PO; TRIA1OI80 TOP; VITAD400CA PO
[2020-12-09 12:42] LABS: HEMATOCRIT 41.4 % (36.0-47.0); HEMOGLOBIN 13.2 g/dl (12.0-15.5); MEAN CORPUSCULAR HEMOGLOBIN 29.1 pg (27.0-33.0); MEAN CORPUSCULAR HGB CONC 31.9 g/dl (32.0-36.5); MEAN CORPUSCULAR VOLUME 91.2 fl (80.0-96.0); PLATELET COUNT, AUTOMATED 267 10^3/uL (150-450); RED BLOOD COUNT 4.54 10^6/uL (4.00-5.40); WHITE BLOOD COUNT 7.4 10^3/uL (4.0-10.0)
[2020-12-09 13:15] LABS: ALBUMIN 3.3 GM/DL (3.2-5.2); ALT/SGPT 28 U/L (12-78); BILIRUBIN,TOTAL 0.5 MG/DL (0.2-1.0); BLOOD UREA NITROGEN 13 MG/DL (7-18); CALCIUM LEVEL 8.5 MG/DL (8.8-10.2); CARBON DIOXIDE LEVEL 28 MEQ/L (21-32); CHLORIDE LEVEL 108 MEQ/L (98-107); CHOLESTEROL LEVEL 153 MG/DL (<200); CHOLESTEROL RISK RATIO 2.833 (<5); CREATININE FOR GFR 0.76 MG/DL (0.55-1.30); GLOMERULAR FILTRATION RATE > 60.0 (>39); GLUCOSE, FASTING 86 MG/DL (70-100); HDL CHOLESTEROL 54 MG/DL (>40); LDL CHOLESTEROL 73 MG/DL (<100); NON-HDL-C 99 MG/DL; POTASSIUM SERUM 4.7 MEQ/L (3.5-5.1); SODIUM LEVEL 141 MEQ/L (136-145); TOTAL 25(OH) VITAMIN D 30.7 NG/ML (30.0-100.0); TOTAL PROTEIN 6.7 GM/DL (6.4-8.2); TRIGLYCERIDES LEVEL 128 MG/DL (<150)
== END ==
LOC: M SFHCCLAY 08:19
PROVIDERS: ATTEND Family Medicine
DX: I10 Essential (primary) hypertension (principal); E78.5 Hyperlipidemia, unspecified; E55.9 Vitamin D deficiency, unspecified

== ENCOUNTER → 2021-12-09 | Outpatient (REF) | payer MEDICARE, OTHER ==
[~2021-12-09] MED LIST changes: -D31000TA2 PO; -MONT10TA10 PO; +MONT10TA97 PO; +VITA100093 PO
[2021-12-09 12:25] LABS: ALBUMIN 3.5 GM/DL (3.2-5.2); ALT/SGPT 27 U/L (12-78); BILIRUBIN,TOTAL 0.4 MG/DL (0.2-1.0); BLOOD UREA NITROGEN 13 MG/DL (7-18); CALCIUM LEVEL 9.2 MG/DL (8.8-10.2); CARBON DIOXIDE LEVEL 27 MEQ/L (21-32); CHLORIDE LEVEL 110 MEQ/L (98-107); CHOLESTEROL LEVEL 164 MG/DL (<200); CHOLESTEROL RISK RATIO 2.603 (<5); CREATININE FOR GFR 0.83 MG/DL (0.55-1.30); GLOMERULAR FILTRATION RATE > 60.0 (>39); GLUCOSE, FASTING 102 MG/DL (70-100); HDL CHOLESTEROL 63 MG/DL (>40); LDL CHOLESTEROL 75 MG/DL (<100); NON-HDL-C 101 MG/DL; POTASSIUM SERUM 4.4 MEQ/L (3.5-5.1); SODIUM LEVEL 142 MEQ/L (136-145); TOTAL PROTEIN 6.9 GM/DL (6.4-8.2); TRIGLYCERIDES LEVEL 128 MG/DL (<150)
[2021-12-09 12:52] LABS: TOTAL 25(OH) VITAMIN D 36.9 NG/ML (30.0-100.0)
[2021-12-12 11:30] LABS: ALBUMIN 4.02 GM/DL (3.29-5.55); ALBUMIN % 57.4 % (55.8-66.1); ALPHA-1-GLOBULIN % 3.8 % (2.9-4.9); ALPHA-1-GLOBULINS 0.27 GM/DL (0.17-0.41); ALPHA-2-GLOBULINS 0.91 GM/DL (0.42-0.99); BETA-1-GLOBULINS 0.43 GM/DL (0.28-0.60); BETA-1-GLOBULINS % 6.1 % (4.7-7.2); BETA-2-GLOBULINS 0.36 GM/DL (0.19-0.55); BETA-2-GLOBULINS % 5.2 % (3.2-6.5); GAMMA GLOBULIN % 14.5 % (11.1-18.8); GAMMA GLOBULINS 1.02 GM/DL (0.65-1.58)
== END ==
LOC: M SFHCCLAY 08:01
PROVIDERS: ATTEND Family Medicine
DX: I10 Essential (primary) hypertension (principal); E78.5 Hyperlipidemia, unspecified; E55.9 Vitamin D deficiency, unspecified; D89.2 Hypergammaglobulinemia, unspecified; Z79.810 Long term (current) use of selective estrogen receptor modulators (SERMs)

== ENCOUNTER → 2021-12-11 | Outpatient (REF) | payer MEDICARE, OTHER | LOC: M SFHCCLAY 08:09 | PROVIDERS: ATTEND Family Medicine | DX: D89.2 Hypergammaglobulinemia, unspecified (principal) ==

== ENCOUNTER → 2022-06-11 | Outpatient (REF) | payer MEDICARE, OTHER ==
[~2022-06-11] MED LIST changes: +DIPH-435 PO; -DIPH25CA32 PO
== END ==
LOC: M SFHCCLAY 08:06
PROVIDERS: ATTEND Family Medicine
DX: R73.01 Impaired fasting glucose (principal)

== ENCOUNTER → 2022-06-16 | Outpatient (CLI) | payer MEDICARE, OTHER | LOC: M WHC 08:15 | PROVIDERS: ATTEND Family Medicine | DX: E04.1 Nontoxic single thyroid nodule (principal) ==

== ENCOUNTER → 2022-12-21 | Outpatient (REF) | payer MEDICARE, OTHER ==
[2022-12-22 02:40] LABS: HEMOGLOBIN A1c 5.8 % (4.0-6.0)
[2022-12-22 04:00] LABS: ALBUMIN 3.7 G/DL (3.2-5.2); ALKALINE PHOSPHATASE 75 U/L (46-116); ALT/SGPT 24 U/L (7.0-40); AST/SGOT 21 U/L (<34); BILIRUBIN,TOTAL 0.5 MG/DL (0.3-1.2); BLOOD UREA NITROGEN 15 MG/DL (9-23); CALCIUM LEVEL 9.5 MG/DL (8.3-10.6); CARBON DIOXIDE LEVEL 25 MMOL/L (20-31); CHLORIDE LEVEL 106 MMOL/L (98-107); CHOLESTEROL LEVEL 178 MG/DL (<200); CHOLESTEROL RISK RATIO 3.12 (<5); CREATININE FOR GFR 0.63 MG/DL (0.55-1.30); GLOMERULAR FILTRATION RATE > 60.0 (>39); GLUCOSE, FASTING 101 MG/DL (74-106); LDL CHOLESTEROL 100.6 MG/DL (<100); POTASSIUM SERUM 4.3 MMOL/L (3.5-5.1); SODIUM LEVEL 140 MMOL/L (136-145); TOTAL PROTEIN 6.9 G/DL (5.7-8.2); TRIGLYCERIDES LEVEL 102 MG/DL (<150)
== END ==
LOC: M SFHCCLAY 08:24
PROVIDERS: ATTEND Family Medicine
DX: I10 Essential (primary) hypertension (principal); E78.5 Hyperlipidemia, unspecified; E55.9 Vitamin D deficiency, unspecified; R73.01 Impaired fasting glucose

== ENCOUNTER → 2023-06-18 | Outpatient (REF) | payer MEDICARE, OTHER ==
[2023-06-18 12:32] LABS: BASO # 0.1 10^3/uL (0.0-0.2); BASO % 1.1 % (0.0-1.0); EOS # 0.2 10^3/uL (0.0-0.5); EOS % 3.5 % (0.0-3.0); HEMATOCRIT 42.9 % (36.0-47.0); LYMPH # 2.3 10^3/uL (1.5-5.0); MEAN CORPUSCULAR HEMOGLOBIN 29.9 pg (27.0-33.0); MEAN CORPUSCULAR HGB CONC 32.6 g/dl (32.0-36.5); MEAN CORPUSCULAR VOLUME 91.5 fl (80.0-96.0); MONO # 0.8 10^3/uL (0.0-0.8); MONO % 12.2 % (2.0-8.0); NEUTROPHILS # 3.1 10^3/uL (1.5-8.5); PLATELET COUNT, AUTOMATED 304 10^3/uL (150-450); RED BLOOD COUNT 4.69 10^6/uL (4.00-5.40); WHITE BLOOD COUNT 6.5 10^3/uL (4.0-10.0)
[2023-06-18 12:51] LABS: ALBUMIN 3.6 G/DL (3.2-5.2); ALKALINE PHOSPHATASE 79 U/L (46-116); ALT/SGPT 19 U/L (7.0-40); AST/SGOT 21 U/L (<34); BILIRUBIN,TOTAL 0.5 MG/DL (0.3-1.2); BLOOD UREA NITROGEN 16 MG/DL (9-23); CALCIUM LEVEL 9.6 MG/DL (8.3-10.6); CARBON DIOXIDE LEVEL 30 MMOL/L (20-31); CHLORIDE LEVEL 106 MMOL/L (98-107); CHOLESTEROL LEVEL 234 MG/DL (<200); CHOLESTEROL RISK RATIO 4.53 (<5); CREATININE FOR GFR 0.69 MG/DL (0.55-1.30); FREE T3 3.6 PG/ML (2.3-4.2); FREE T4 1.04 NG/DL (0.89-1.76); GLOMERULAR FILTRATION RATE > 60.0 (>39); GLUCOSE, FASTING 92 MG/DL (74-106); HDL CHOLESTEROL 51.6 MG/DL (>40); LDL CHOLESTEROL 154.4 MG/DL (<100); NON-HDL-C 182.4 MG/DL; POTASSIUM SERUM 4.7 MMOL/L (3.5-5.1); SODIUM LEVEL 139 MMOL/L (136-145); THYROGLOBULIN ANTIBODY < 15.0 U/ML (<60.0); THYROID STIMULATING HORMONE 1.813 uIU/ML (0.55-4.78); TOTAL PROTEIN 6.9 G/DL (5.7-8.2); TRIGLYCERIDES LEVEL 140 MG/DL (<150)
== END ==
LOC: M SFHCCLAY 08:47
PROVIDERS: ATTEND Family Medicine
DX: I10 Essential (primary) hypertension (principal); E78.5 Hyperlipidemia, unspecified; E04.1 Nontoxic single thyroid nodule

== ENCOUNTER → 2023-07-02 | Outpatient (CLI) | payer MEDICARE, OTHER | LOC: M RAD 12:09 | PROVIDERS: ATTEND Family Medicine | DX: E04.1 Nontoxic single thyroid nodule (principal) ==

== ENCOUNTER → 2023-12-28 | Outpatient (REF) | payer MEDICARE, OTHER | LOC: M SFHCCLAY 09:37 | PROVIDERS: ATTEND Family Medicine | DX: I10 Essential (primary) hypertension (principal); E78.5 Hyperlipidemia, unspecified; E04.1 Nontoxic single thyroid nodule ==

== ENCOUNTER → 2023-12-29 | Outpatient (REF) | payer MEDICARE, OTHER ==
[2023-12-29 19:06] LABS: ALBUMIN 3.7 G/DL (3.2-5.2); ALKALINE PHOSPHATASE 71 U/L (35-104); ALT/SGPT 23 U/L (7.0-40); AST/SGOT 18 U/L (<34); BILIRUBIN,TOTAL 0.5 MG/DL (0.3-1.2); BLOOD UREA NITROGEN 17 MG/DL (9-23); CALCIUM LEVEL 10.1 MG/DL (8.3-10.6); CARBON DIOXIDE LEVEL 28 MMOL/L (20-31); CHLORIDE LEVEL 110 MMOL/L (98-107); CHOLESTEROL LEVEL 184 MG/DL (<200); CHOLESTEROL RISK RATIO 3.26 (<5); GLOMERULAR FILTRATION RATE > 60.0 (>39); GLUCOSE, FASTING 109 MG/DL (74-106); HDL CHOLESTEROL 56.3 MG/DL (>40); LDL CHOLESTEROL 103.9 MG/DL (<100); NON-HDL-C 127.7 MG/DL; POTASSIUM SERUM 4.6 MMOL/L (3.5-5.1); SODIUM LEVEL 139 MMOL/L (136-145); TOTAL PROTEIN 7.2 G/DL (5.7-8.2); TRIGLYCERIDES LEVEL 119 MG/DL (<150)
[2023-12-29 19:07] LABS: FREE T4 1.13 NG/DL (0.89-1.76)
[2023-12-29 19:08] LABS: THYROID STIMULATING HORMONE 0.959 uIU/ML (0.55-4.78)
== END ==
LOC: M SFHCCLAY 09:34
PROVIDERS: ATTEND Family Medicine
DX: I10 Essential (primary) hypertension (principal); E78.5 Hyperlipidemia, unspecified; E04.1 Nontoxic single thyroid nodule

== ENCOUNTER → 2024-06-20 | Outpatient (CLI) | payer MEDICARE, OTHER | LOC: M CLY 13:12 | PROVIDERS: ATTEND Physician Assistant | DX: M17.0 Bilateral primary osteoarthritis of knee (principal); M25.561 Pain in right knee ==

== ENCOUNTER → 2024-06-21 | Outpatient (REF) | payer MEDICARE, OTHER ==
[2024-06-21 13:00] LABS: HEMOGLOBIN A1c 5.7 % (4.0-6.0)
[2024-06-21 13:10] LABS: ALBUMIN 3.9 G/DL (3.2-5.2); BILIRUBIN,TOTAL 0.5 MG/DL (0.3-1.2); CALCIUM LEVEL 9.4 MG/DL (8.3-10.6); CHOLESTEROL RISK RATIO 4.55 (<5); CREATININE FOR GFR 0.76 MG/DL (0.55-1.30); GLOMERULAR FILTRATION RATE 82.2 (>39); LDL CHOLESTEROL 183.6 MG/DL (<100); POTASSIUM SERUM 4.6 MMOL/L (3.5-5.1); TOTAL PROTEIN 7.1 G/DL (5.7-8.2)
[2024-06-21 13:11] LABS: FREE T4 1.16 NG/DL (0.89-1.76); THYROID STIMULATING HORMONE 1.175 uIU/ML (0.55-4.78)
== END ==
LOC: M SFHCCLAY 08:30
PROVIDERS: ATTEND Physician Assistant
DX: E78.5 Hyperlipidemia, unspecified (principal); I10 Essential (primary) hypertension; E04.1 Nontoxic single thyroid nodule; Z68.31 Body mass index [BMI] 31.0-31.9, adult; Z79.899 Other long term (current) drug therapy

== ENCOUNTER → 2024-07-07 | Outpatient (CLI) | payer MEDICARE, OTHER | LOC: M RAD 15:42 | PROVIDERS: ATTEND Physician Assistant | DX: E04.2 Nontoxic multinodular goiter (principal) ==

== ENCOUNTER → 2024-12-18 | Outpatient (REF) | payer MEDICARE, OTHER ==
[2024-12-18 12:54] LABS: ALT/SGPT 24.0 U/L (7.0-40); AST/SGOT 20.0 U/L (<34); CALCIUM LEVEL 9.7 MG/DL (8.3-10.6); CARBON DIOXIDE LEVEL 27.0 MMOL/L (20-31); CHLORIDE LEVEL 105.0 MMOL/L (98-107); CHOLESTEROL LEVEL 273.0 MG/DL (<200); CHOLESTEROL RISK RATIO 4.79 (<5); CREATININE FOR GFR 0.73 MG/DL (0.55-1.30); GLOMERULAR FILTRATION RATE 85.7 (>39); LDL CHOLESTEROL 186.5 MG/DL (<100); NON-HDL-C 216.1 MG/DL; POTASSIUM SERUM 4.7 MMOL/L (3.5-5.1); SODIUM LEVEL 143.0 MMOL/L (136-145); TRIGLYCERIDES LEVEL 148.0 MG/DL (<150)
[2024-12-18 12:56] LABS: FREE T4 1.14 NG/DL (0.89-1.76); TOTAL 25(OH) VITAMIN D 28.5 NG/ML (20.0-100.0)
[2024-12-18 13:42] LABS: ESTIMATED AVERAGE GLUCOSE 128.0 MG/DL (60-110)
== END ==
LOC: M SFHCCLAY 08:46
PROVIDERS: ATTEND Physician Assistant
DX: E78.5 Hyperlipidemia, unspecified (principal); I10 Essential (primary) hypertension; E04.1 Nontoxic single thyroid nodule; Z68.31 Body mass index [BMI] 31.0-31.9, adult; M25.561 Pain in right knee; M25.562 Pain in left knee; Z79.899 Other long term (current) drug therapy